=== PATIENT | female | born 1955 | race Caucasian/White ===

== ENCOUNTER → 2016-06-17 | Outpatient (CLI) | payer OTHER | END | disposition home or self-care (01) | LOC: RADMN 09:07 | PROVIDERS: ATTEND Internal Medicine Geriatric Medicine | DX: R10.9 Unspecified abdominal pain (principal) | CPT/HCPCS: 74176 ==

== ENCOUNTER 2021-12-03 12:33 | Emergency (ER) | payer MEDICARE ==
[~2021-12-03] VITALS: Ht 154.9 cm; Wt 63.2 kg
[2021-12-03] MEDS ORDERED: OLME20TA10 PO (12:44)
[2021-12-03] MEDS ORDERED: ESCI-8 PO (12:44)
[2021-12-03] MEDS ORDERED: IBUPROFEN 600 MG TABLET PO ONE (12:45)
[2021-12-03] MEDS ORDERED: ACETAMINOPHEN 325 MG TABLET PO ONE (12:45)
[2021-12-03] MEDS ORDERED: BACITRACIN 28 GM OINTMENT TP ONE (13:00)
[2021-12-03] MEDS ORDERED: LIDOCAINE 1% 10 ML VIAL SQ ONE (13:30)
[2021-12-03] MEDS ORDERED: OXYC5 PO (15:18)
[2021-12-03 15:59] VITALS: BP 116/62
== END 2021-12-03 16:01 | disposition home or self-care (01) ==
LOC: EMS 12:37
DX: S62.612A Displaced fracture of proximal phalanx of right middle finger, initial encounter for closed fracture (principal); S62.614A Displaced fracture of proximal phalanx of right ring finger, initial encounter for closed fracture; S62.616A Displaced fracture of proximal phalanx of right little finger, initial encounter for closed fracture; I10 Essential (primary) hypertension; Z79.899 Other long term (current) drug therapy; W01.0XXA Fall on same level from slipping, tripping and stumbling without subsequent striking against object, initial encounter; Y93.89 Activity, other specified; Y92.89 Other specified places as the place of occurrence of the external cause; Y99.8 Other external cause status
CPT/HCPCS: 26725; 99284; 73110; 73130; J3490